=== PATIENT | male | born 1995 | race Caucasian/White ===

== ENCOUNTER 2019-09-16 21:27 | Emergency (ER) | payer BC, MEDICAID ==
[~2019-09-16] VITALS: Ht 170.2 cm; Wt 81.0 kg
[2019-09-16] MEDS ORDERED: famotidine 20mg tablet PO ONE (22:50)
[2019-09-16] MEDS ORDERED: ondansetron 4mg rapidly disintigrating tab PO ONE (22:50)
[2019-09-16] MEDS ORDERED: famotidine 10mg tablet PO ONE (22:55)
[2019-09-16 23:46] VITALS: BP 143/99
[2019-09-17] MEDS ORDERED: OMEP40CA13 PO (00:13)
[2019-09-17] MEDS ORDERED: ONDA4TAB6 PO (00:13)
== END 2019-09-17 01:01 | disposition home or self-care (01) ==
LOC: ER 21:29
DX: J11.1 Influenza due to unidentified influenza virus with other respiratory manifestations (principal); Z76.0 Encounter for issue of repeat prescription; Z79.899 Other long term (current) drug therapy
CPT/HCPCS: 87502; 87503; 99283

== ENCOUNTER 2019-09-24 03:36 | Emergency (ER) | payer BC ==
[~2019-09-24] VITALS: Ht 170.2 cm; Wt 82.7 kg
[~2019-09-24 03:36] MED LIST: OMEP40CA13 PO; ONDA4TAB6 PO
[2019-09-24 03:38] VITALS: BP 150/93
== END 2019-09-24 04:16 ==
LOC: ER 03:37
DX: F10.129 Alcohol abuse with intoxication, unspecified (principal); K21.9 Gastro-esophageal reflux disease without esophagitis; V87.7XXA Person injured in collision between other specified motor vehicles (traffic), initial encounter; Y93.89 Activity, other specified; Y92.488 Other paved roadways as the place of occurrence of the external cause; Y99.8 Other external cause status; Z79.899 Other long term (current) drug therapy
CPT/HCPCS: 99283

== ENCOUNTER 2021-04-23 20:38 | Emergency (ER) | payer BC, OTHER ==
[~2021-04-23] VITALS: Ht 172.7 cm; Wt 72.7 kg
[~2021-04-23 20:38] MED LIST changes: -OMEP40CA13 PO
[2021-04-23 20:55] VITALS: BP 144/81
[2021-04-23] MEDS ORDERED: HYDROcodone/acetaminophen 5mg/325mg tablet PO ONE (23:30)
[2021-04-23] MEDS ORDERED: clindamycin 150mg capsule PO ONE (23:30)
[2021-04-23] MEDS ORDERED: ketorolac tromethamine 15mg/ml inj. IM ONE (23:30)
[2021-04-23] MEDS ORDERED: ondansetron 4mg rapidly disintigrating tab PO ONE (23:30)
[2021-04-23] MEDS ORDERED: IBUP-1984 PO (23:33)
[2021-04-23] MEDS ORDERED: ONDA4TAB6 PO (23:33)
[2021-04-23] MEDS ORDERED: HYDR-3965 PO (23:33)
[2021-04-23] MEDS ORDERED: CLIN300C70 PO (23:33)
== END 2021-04-23 23:54 | disposition home or self-care (01) ==
LOC: ER 20:38
DX: K04.7 Periapical abscess without sinus (principal); L03.211 Cellulitis of face; K08.89 Other specified disorders of teeth and supporting structures; K21.9 Gastro-esophageal reflux disease without esophagitis; Z79.2 Long term (current) use of antibiotics; Z79.899 Other long term (current) drug therapy
CPT/HCPCS: 96372; 99284; J1885

== ENCOUNTER 2021-09-16 14:15 | Emergency (ER) | payer MEDICAID ==
[~2021-09-16] VITALS: Ht 175.3 cm; Wt 78.9 kg
[2021-09-16 14:58] VITALS: BP 159/88
[2021-09-16] MEDS ORDERED: PENI500T2 PO (15:07)
[2021-09-16] MEDS ORDERED: IBUP-1986 PO (15:08)
== END 2021-09-16 15:18 | disposition home or self-care (01) ==
LOC: ER 14:16
DX: K02.9 Dental caries, unspecified (principal); K08.89 Other specified disorders of teeth and supporting structures; K21.9 Gastro-esophageal reflux disease without esophagitis; Z79.2 Long term (current) use of antibiotics; Z79.899 Other long term (current) drug therapy
CPT/HCPCS: 99283

== ENCOUNTER 2021-09-24 19:20 | Emergency (ER) | payer MEDICAID ==
[~2021-09-24] VITALS: Ht 175.3 cm; Wt 79.2 kg
[~2021-09-24 19:20] MED LIST changes: +IBUP-1986 PO; +PENI500T2 PO
[2021-09-24 19:48] VITALS: BP 141/89
== END 2021-09-25 03:10 | disposition left against medical advice (07) ==
LOC: ER 19:21
DX: M79.602 Pain in left arm (principal); Z53.21 Procedure and treatment not carried out due to patient leaving prior to being seen by health care provider

== ENCOUNTER 2025-07-14 16:05 | Emergency (ER) | payer MEDICAID ==
[~2025-07-14] VITALS: Ht 172.7 cm; Wt 80.8 kg
[~2025-07-14 16:05] MED LIST changes: -PENI500T2 PO
[2025-07-14 16:12] VITALS: BP 148/83; PULSE 92; RESP 16; TEMP 98.5; O2SAT 100
--- NOTE | 2025-07-14 16:12 | ELECTROCARDIOGRAPH REPORT ---
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
--- NOTE | 2025-07-14 17:39 | RADIOLOGY REPORT ---
CHEST RADIOGRAPH Indication: SOB Technique: Single frontal view of the chest was obtained Comparison: None FINDINGS: Lines and Tubes: None Lungs: No focal consolidation. Pleura: No effusion. No pneumothorax. Cardiomediastinal contours: Unremarkable. midline sternotomy wires are noted. Bones: No acute osseous abnormality. IMPRESSION: No acute cardiopulmonary disease.
[2025-07-14] MEDS ORDERED: ALBU18HF2 INH (17:51)
--- NOTE | 2025-07-14 17:51 | Physician Documentation ---
History of Present Illness ~ Chief Complaint: Shortness of Breath Stated Complaint: CHEST PAIN/ SOB Time Seen by MD: 17:22 Primary Medical Doctor: kian SMITH 29-year-old male with a known past medical history of anxiousness for which she takes anxiety. He has had several suddenly events in his life that is triggers is anxiety specifically lives in his mom couple of years ago and recent detoxification from alcohol eight months ago. Reports that he takes hydroxyzine p.r.n.. At times if symptoms resolve however today the anxious this is not resolved. He is in the visible left upper and lower extremity restlessness. He is without SI or HI. Denies drug use or alcohol use. He is very clear without with a GCS of 15. He has behavioral health therapy aligned. Medication Reconciliation Allergies: Coded Allergies: No Known Allergies (Unverified , 10/25/16) Scheduled Albuterol Sulfate (Ventolin Hfa), 2 PUFFS INH Q6H Hydroxyzine Hcl* (Atarax*), 1 TAB PO Q8H Ibuprofen (Ibuprofen), 1 TAB PO Q8H Ondansetron Hcl (Zofran), 1 TAB PO Q6H Ondansetron Hcl (Zofran), 1 TAB PO Q6H Past Medical History Past Medical History: GERD Past Surgical History: no surgical history Alcohol Use: None Drug Use: none Lives with: Family Lives In: Home Review of Systems All Other Systems at this time: Reviewed and Negative Respiratory: Reports: see HPI, shortness of breath Psychiatric: Reports: see HPI, anxiety Physical Exam Vital Signs: RN Vital Signs have been reviewed: Yes, Temperature: 98.5, Source: Oral, Heart Rate: 92, Respiratory Rate: 16, BP: 148/83, Pulse Oximetry: 100, Weight: 80.800 Oxygen Flow Rate: 0 General Appearance: alert, WD/WN, other (Visibly anxious with restless movement of the left leg) Neck: normal inspection EENT: normal ENT inspection Ear: auricle normal Respiratory: lungs clear, other (Mild forced expiratory volume decreased) Chest: no accessory muscle use Cardiovascular: normal peripheral pulses, regular rate, rhythm Gastrointestinal: non-tender Extremities: normal inspection Skin: normal color, warm/dry Neurologic: oriented x4, 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 as tested Psychiatric: anxious Progress Results/Orders Results/Orders Orders - DAIJA MCARTHUR PAC Chest,Single View (07/14/25 17:27) Completed Orders - DAIJA MCARTHUR PAC Chest,Single View (07/14/25 17:27) Vital Signs 07/14/25 16:12 Temp 98.5 Pulse 92 Resp 16 B/P (MAP) 148/83 Pulse Ox 100 O2 Flow Rate 0 Medical Decision Making Additional information obtaine: old records Findings Examination history is consistent with the patient's chronic history of panic attacks yet but because of mild forced expiratory volume that may be contributory with anxiety we will go ahead and provide patient with chest x-ray screening which is reviewed by myself as no infiltrates, pneumothoraces or effusions. Additionally be providing patient with an MDI further is some clinical suspicion that this might be triggered his anxiety. He is well aligned with Behavioral Health and is tolerated hydroxyzine in the past without difficulty. There remains no SI or HI. He is well conversational alert and oriented with GCS of 15 with stable vital signs and safe for discharge. Heart Score: 0 Differential Dx:Considerations: Include: anxiety (Working diagnosis), asthma (Can not exclude due to mild forced expiratory volume though lungs are clear), bronchitis (Low probability due to no cough, shortness of breath productive sputum or prior history of the same), panic attack, pulmonary embolism (Unlikely with 100% O2 saturation tachycardia that is associated with anxiousness which is visible allow restless leg, no hypercoagulable states.) Departure Disposition: 01 HOME / SELF CARE / HOMELESS Impression: Primary Impression: Anxiousness Additional Impression: Reactive airway disease Qualified Codes: J45.909 - Unspecified asthma, uncomplicated Condition: Improved Discharge Instructions: Managing Anxiety, Adult Additional Instructions: Please continue with your follow up with behavioral health. Please continue with hydroxyzine as needed for anxiousness and sleep and use albuterol inhaler if no resolution and shortness of breath with hydroxyzine. Return to the emergency department as needed. Your EKG and chest x-ray imaging today are all reassuring. Referrals: NO PRIMARY CARE PROVIDER (PCP) Prescriptions Hydroxyzine Hcl* (Atarax*) 25 Mg Tablet 1 TAB PO Q8H for anxiety for 30 Days, #30 TAB Prov: DAIJA MCARTHUR PAC 07/14/25 Albuterol Sulfate (Ventolin Hfa) 90 Mcg Hfa.aer.ad 2 PUFFS INH Q6H, #1 INHALER Prov: DAIJA MCARTHUR PAC 07/14/25 Education Educated: Patient Educated regarding: diagnosis, treatment Signature Scribe Signature: . Attestation: . DAIJA MCARTHUR PAC Jul 14, 2025 17:51
[2025-07-14] MEDS ORDERED: HYDR-3686 PO (18:21)
== END 2025-07-14 18:25 | disposition home or self-care (01) ==
LOC: ER 16:06
DX: J45.909 Unspecified asthma, uncomplicated (principal); F41.9 Anxiety disorder, unspecified; K21.9 Gastro-esophageal reflux disease without esophagitis; Z79.899 Other long term (current) drug therapy
CPT/HCPCS: 71045; 93005; 99283